=== PATIENT | male | born 1945 | race Caucasian/White ===

== ENCOUNTER 2018-12-31 20:35 | Emergency (ER) | payer MEDICARE, OTHER ==
[2018-12-31 21:33] LABS: ABS Basophils 0.1 10^3/ul (0-0.2); ABS Eosinophils 0 10^3/ul (0-0.6); ABS Lymphocytes 0.9 10^3/ul (1.0-4.8); ABS Monocytes 0.5 10^3/ul (0-0.8); ABS Neutrophils 9.9 10^3/ul (1.5-7.7); ABS Nucleated RBC 0 10^3/ul; Eosinophil % 0 %; Hematocrit 38 % (42-52); Hemoglobin 12.5 g/dl (14.0-18.0); Lymphocyte % 7.5 %; Mean Corpuscular HGB Conc 34 g/dl (31-36); Mean Corpuscular Hemoglobin 33 pg (27-31); Mean Corpuscular Volume 98 fL (80-94); Mean Platelet Volume 9.2 fL (7.4-10.4); Nucleated Red Blood Cells % 0; Platelet Count 159 10^3/ul (150-450); Red Blood Count 3.84 10^6/ul (4.00-5.40); Red Cell Distribution Width 15 % (10.5-15); White Blood Count 11.3 10^3/ul (3.5-10.8)
[2018-12-31 21:50] LABS: BUN/Creatinine Ratio 29.2 (8-20); C Reactive Protein 1.87 mg/L (<8.01); Calcium 9.7 mg/dL (8.6-10.3); EGFR African American 71.4 (>60); INR 2.1 (0.77-1.02); Potassium 4.3 mmol/L (3.5-5.0)
--- NOTE | 2018-12-31 23:31 | ED ---
Upper Extremity Pain - HPI Summary HPI Summary: Pt is a 73 y/o male who presents to the ED c/o hand pain. He has severe gout pain in both hands that radiates up his right arm. Pt also notes bruising and redness that is spreading up his right forearm. He rates the pain as a 10/10 in severity. Pts notes that he recently ate shrimp and beef stew, and has been lifting 1 lb weights. She believes that his forearm bruising could be due to this. Pt is on Coumadin and notes he frequently gets bleeding surrounding his gout. He takes Oxycodone and Methadone for his pain, and used Colchicine, none of which have relieved his pain. - History of Current Complaint Chief Complaint: EDExtremityUpper Stated Complaint: BAD GOUT ATTACK Time Seen by Provider: 12/31/18 23:24 Hx Obtained From: Patient, Family/Pipeline Maintenance Supervisor - Mechanism Of Injury: Other - No injury Onset/Duration: Still Present Timing: Constant Severity Currently: Severe Pain Location: Forearm - right, Hand - bilateral Aggravating Factor(s): Nothing Alleviating Factor(s): Nothing Associated Signs & Symptoms: Positive: Bruising Related History: Other: - gout - Allergies/Home Medications Allergies/Adverse Reactions: Allergies Allergy/AdvReac Type Severity Reaction Status Date / Time MS Triamterene [Triamterene] Allergy Shakes Verified 12/31/18 20:42 PMH/Surg Hx/FS Hx/Imm Hx Endocrine/Hematology History: Reports: Hx Diabetes Denies: Hx Thyroid Disease Cardiovascular History: Reports: Hx Auto Implanted Cardiovert Defib, Hx Hypertension Denies: Hx Angina Respiratory History: Reports: Hx Chronic Obstructive Pulmonary Disease (COPD) - on CPAP, Hx Pneumonia, Hx Sleep Apnea Denies: Hx Asthma GI History: Reports: Hx Hiatal Hernia, Other GI Disorders - constipation Denies: Hx Gastrointestinal Bleed, Hx Ulcer History: Reports: Hx Kidney Infection, Hx Kidney Stones - 26 years ago Musculoskeletal History: Reports: Hx Back Problems, Hx Gout Psychiatric History: Reports: Hx Anxiety, Hx Depression - Surgical History Surgery Procedure, Year, and Place: pacer- bi ventricular Infectious Disease History: No Infectious Disease History: Denies: Hx Clostridium Difficile, Hx Hepatitis, Hx Human Immunodeficiency Virus (HIV), Hx of Known/Suspected MRSA, Traveled Outside the [place] in Last 30 Days - Family History Known Family History: Positive: Hypertension - Social History Alcohol Use: None Hx Substance Use: No Substance Use Type: Reports: None, Prescribed Smoking Status (MU): Unknown if Ever Smoked Have You Smoked in the Last Year: No Review of Systems Positive: Myalgia - bilateral hands extending up right arm Positive: Bruising - hematoma right forearm All Other Systems Reviewed And Are Negative: Yes Physical Exam - Summary Physical Exam Summary: Appearance: Well appearing, no pain distress Skin: warm, dry, reflects adequate perfusion, palpable hematoma on right volar wrist with ecchymosis extending proximally up the forearm, no significant tenderness Head/face: normal Eyes: EOMI, EMILY ENT: mucous membranes moist Neck: supple, non-tender Respiratory: CTA, breath sounds present Cardiovascular: RRR, pulses symmetrical, no LE edema, pacemaker defibrillator in left chest Abdomen: non-tender, soft Bowel Sounds: present Musculoskeletal: terrible tophi bilateral hands with arthritic changes, Neuro: normal, sensory motor intact, A&Ox3 Triage Information Reviewed: Yes Vital Signs On Initial Exam: Initial Vitals Temp Pulse Resp BP Pulse Ox 99.0 F 71 18 124/82 95 12/31/18 20:40 12/31/18 20:40 12/31/18 20:40 12/31/18 20:40 12/31/18 20:40 Vital Signs Reviewed: Yes Diagnostics - Vital Signs Vital Signs Temp Pulse Resp BP Pulse Ox 12/31/18 20:40 99.0 F 71 18 124/82 95 - Laboratory Lab Results: Lab Results 12/31/18 12/31/18 12/31/18 Range/Units 21:16 21:16 21:16 WBC 11.3 H (3.5-10.8) 10^3/ul RBC 3.84 L (4.00-5.40) 10^6/ul Hgb 12.5 L (14.0-18.0) g/dl Hct 38 L (42-52) % MCV 98 H (80-94) fL MCH 33 H (27-31) pg MCHC 34 (31-36) g/dl RDW 15 (10.5-15) % Plt Count 159 (150-450) 10^3/ul MPV 9.2 (7.4-10.4) fL Neut % (Auto) 87.8 % Lymph % (Auto) 7.5 % [place] % (Auto) 4.1 % Eos % (Auto) 0 % Baso % (Auto) 0.6 % Absolute Neuts (auto) 9.9 H (1.5-7.7) 10^3/ul Absolute Lymphs (auto) 0.9 L (1.0-4.8) 10^3/ul Absolute Monos (auto) 0.5 (0-0.8) 10^3/ul Absolute Eos (auto) 0 (0-0.6) 10^3/ul Absolute Basos (auto) 0.1 (0-0.2) 10^3/ul Absolute Nucleated RBC 0 10^3/ul Nucleated RBC % 0 INR (Anticoag Therapy) 2.10 H (0.77-1.02) Sodium 132 L (135-145) mmol/L Potassium 4.3 (3.5-5.0) mmol/L Chloride 97 L (101-111) mmol/L Carbon Dioxide 30 (22-32) mmol/L Anion Gap 5 (2-11) mmol/L BUN 35 H (6-24) mg/dL Creatinine 1.20 H (0.67-1.17) mg/dL Est GFR ( Amer) 71.4 (>60) Est GFR (Non-Af Amer) 59.0 (>60) BUN/Creatinine Ratio 29.2 H (8-20) Glucose 222 H (70-100) mg/dL Calcium 9.7 (8.6-10.3) mg/dL C-Reactive Protein 1.87 (<8.01) mg/L Result Diagrams: 12/31/18 21:16 12/31/18 21:16 Lab Statement: Any lab studies that have been ordered have been reviewed, and results considered in the medical decision making process. Course/Dx - Course Course Of Treatment: Nurse's notes reviewed. Patient with extensive tophaceous gout presents with ecchymosis and tenderness in the right forearm. He is on Coumadin and has sustained hematoma. There is no significant swelling. He is neurovascularly intact. - Diagnoses Differential Diagnosis/HQI/PQRI: Positive: Other - Gout, hematoma, sprain/strain Provider Diagnoses: Tophaceous gout, Traumatic hematoma of right forearm, Adverse effect of anticoagulant Discharge - Sign-Out/Discharge Documenting (check all that apply): Patient Departure - Discharge Patient Received Moderate/Deep Sedation with Procedure: No - Discharge Plan Condition: Improved Disposition: HOME Patient Education Materials: Hematoma (ED) Referrals: Sulma Hough [Primary Care Provider] - Additional Instructions: Cornell wrap, warm compresses to the area. Massage may help absorb this faster. Return with new bleeding, worse, new symptoms or other concerns. INR today was 2.1. - Billing Disposition and Condition Condition: IMPROVED Disposition: Home - Attestation Statements Document Initiated by Scribe: Yes Documenting Scribe: Soco Edwards Provider For Whom Meño is Documenting (Include Credential): Xavi Vasquez MD Scribe Attestation: Soco Weller, scribed for Xavi Vasquez MD on 01/01/19 at 0510. Scribe Documentation Reviewed: Yes Provider Attestation: The documentation as recorded by the scribSoco degroot accurately reflects the service I personally performed and the decisions made by me, Xavi Vasquez MD Status of Scribe Document: Viewed
[2019-01-01 00:06] VITALS: BP 148/72
== END 2019-01-01 00:05 | disposition home or self-care (01) ==
LOC: ED 20:35
DX: S50.11XA Contusion of right forearm, initial encounter (principal); M79.631 Pain in right forearm; Z79.01 Long term (current) use of anticoagulants; M1A.9XX1 Chronic gout, unspecified, with tophus (tophi); X58.XXXA Exposure to other specified factors, initial encounter; Y92.9 Unspecified place or not applicable
CPT/HCPCS: 36415; 80048; 85025; 85610; 86140; 99283

== ENCOUNTER 2020-01-01 12:59 | Emergency (ER) | payer OTHER ==
[2020-01-01 13:27] VITALS: BP 126/77
--- NOTE | 2020-01-01 14:04 | UC ---
Lower Extremity/Ankle HPI - HPI Summary HPI Summary: 74-year-old male with a complicated past medical history presents with multiple complaints. Patient has history of severe neuropathy of the lower extremity. He states he has some bleeding from the large toe where he has arthritis on the inside part of the toe and he is worried about infection. He also states that since yesterday he has had some pain in his right calf. He is concerned about potential infection in the foot and maybe concerned about clot in the leg. He denies any difficulty breathing or shortness of breath. He denies any fevers or chills. He has decreased sensation in that area secondary to his neuropathy. Nothing improves his symptoms. palpating the area worsens the symptoms. - History of Current Complaint Chief Complaint: UCLowerExtremity Stated Complaint: LT FOOT CONCERN Time Seen by Provider: 01/01/20 13:35 Hx Obtained From: Patient, Family/Technology Applications Teacher Pain Intensity: 2 - Risk Factors Gout Risk Factors: Age Over 40, Male, Obesity - Allergies/Home Medications Allergies/Adverse Reactions: Allergies Allergy/AdvReac Type Severity Reaction Status Date / Time Sulfa (Sulfonamide AdvReac GI Upset Verified 01/01/20 13:28 Antibiotics) triamterene AdvReac Shakes Verified 01/01/20 13:28 Home Medications: Home Medications Allopurinol TAB* [Zyloprim 300 MG TAB*] 300 mg PO BID 07/29/13 [History Confirmed 01/01/20] Colchicine TAB* 0.6 mg PO DAILY 07/29/13 [History Confirmed 01/01/20] Metoprolol Tartrate TAB* [Lopressor TAB*] 50 mg PO DAILY 07/29/13 [History Confirmed 01/01/20] Simvastatin 10 mg PO DAILY 07/29/13 [History Confirmed 01/01/20] Bacitracin/Polymyxin B Sulfate [Bacitracin-Polymyxin Ointment] 1 dose TOPICAL BID 11/07/16 [History Confirmed 01/01/20] Cholecalciferol TAB* [Vitamin D TAB*] 1,000 unit PO DAILY 11/07/16 [History Confirmed 01/01/20] Docusate CAP* [Colace Cap*] 100 mg PO DAILY 11/07/16 [History Confirmed 01/01/20 ] Ferrous Sulfate TAB* 325 mg PO DAILY 11/07/16 [History Confirmed 01/01/20] Petrolatum,White [Aloe [place]] 1 dose TOPICAL BID 11/07/16 [History Confirmed ] Warfarin TAB(*) [Coumadin TAB(*)] 7.5 mg PO SEE INSTRUCTIONS 11/07/16 [History Confirmed 01/01/20] Warfarin TAB(*) [Coumadin TAB(*)] 10 mg PO SEE INSTRUCTIONS 11/07/16 [History Confirmed 01/01/20] Bisacodyl 10 mg SUPP [Dulcolax Supp*] 10 mg [place] DAILY PRN 01/01/20 [History Confirmed 01/01/20] Cephalexin CAP* [Keflex 500 CAP*] 500 mg PO QID #40 cap 01/01/20 [Rx] Furosemide TAB* [Lasix TAB*] 40 mg PO BID 01/01/20 [History Confirmed 01/01/20] Gabapentin CAP(*) [Neurontin 300 CAP(*)] 300 mg PO BEDTIME 01/01/20 [History Confirmed 01/01/20] Lidocaine 2% VISCOUS* [Xylocaine 2% Viscous*] 15 ml SWISH SPIT Q4H PRN 01/01/20 [History Confirmed 01/01/20] Magnesium Oxide [Magnesium] 400 mg PO DAILY 01/01/20 [History Confirmed 01/01/20 ] Metoprolol Tartrate TAB* [Lopressor TAB*] 150 mg PO BID 01/01/20 [History Confirmed 01/01/20] Morphine TAB (NF) [Morphine 30 MG TAB (NF)] 15 mg PO BID PRN 01/01/20 [History Confirmed 01/01/20] Naloxone Nasal [place]* [Narcan Nasal [place]] 4 mg NASAL BID PRN 01/01/20 [History Confirmed 01/01/20] Nitroglycerin TAB 0.4 MG* 0.4 mg SL Q5M PRN 01/01/20 [History Confirmed 01/01/20 ] Nystatin CREAM* [Nystatin Cream*] 1 applic TOPICAL BID 01/01/20 [History Confirmed 01/01/20] Triamcinolone 0.1% Oint (NF) [Triamcinolone Acetonide] 1 dose TOPICAL DAILY [History Confirmed 01/01/20] PMH/Surg Hx/FS Hx/Imm Hx Previously Healthy: Yes Endocrine History: Diabetes, Dyslipidemia Cardiovascular History: Cardiac Disease, Hypertension Respiratory History: COPD - Surgical History Surgical History: Yes Surgery Procedure, Year, and Place: pacer- bi ventricular - Family History Known Family History: Positive: Hypertension - Social History Occupation: Retired Alcohol Use: None Substance Use Type: None Smoking Status (MU): Never Smoked Tobacco Have You Smoked in the Last Year: No - Immunization History Most Recent Influenza Vaccination: 2016 this year Most Recent Tetanus Shot: 2015 Most Recent Pneumonia Vaccination: 2016 Review of Systems All Other Systems Reviewed And Are Negative: Yes Musculoskeletal: Positive: Arthralgia, Calf Tenderness, Decreased ROM, Edema Physical Exam Triage Information Reviewed: Yes Appearance: Well-Appearing, Obese Vital Signs: Initial Vital Signs Temp 98.3 F 01/01/20 13:24 Pulse 71 01/01/20 13:24 Resp 22 01/01/20 13:24 BP 126/77 01/01/20 13:24 Pulse Ox 98 01/01/20 13:24 Vital Signs Reviewed: Yes Neck exam: Normal Neck: Positive: 1 Respiratory Exam: Normal Cardiovascular Exam: Normal Musculoskeletal Exam: Normal Musculoskeletal: Positive: Other: - defromity of the left toes and foot with the medial toenail with erythema and warmth of the medical toe. chronic venous skin changes. decresaed sensation . cap reill difficult to assess. peripheral pulses barely palpable. also with (+) homans sign/ mild tenderness to palpation of left calf Neurological Exam: Normal Psychological Exam: Normal Skin: Positive: Other - see above. Negative: Rashes, Breakdown, Significant Lesion(s) Diagnostics - Radiology No standard instances Radiology Interpretation Completed By: Radiologist Summary of Radiographic Findings: ?osteomyelitis Lower Extremity Course/Dx - Course Course Of Treatment: ?osteo on xray -- advise ED for further eval. declined ambulance. go by car to [place] - Differential Dx/Diagnosis Differential Diagnosis/HQI/PQRI: Arthritis, Contusion, DVT, Gout, Infection, Sprain, Strain Provider Diagnosis: Toe infection, Pain of left calf, Osteomyelitis Discharge ED - Sign-Out/Discharge Documenting (check all that apply): Patient Departure All imaging exams completed and their final reports reviewed: Yes - Discharge Plan Condition: Good Disposition: TRANS HIGHER LVL OF CARE FAC Prescriptions: Cephalexin CAP* [Keflex 500 CAP*] 500 mg PO QID #40 cap Patient Education Materials: Osteomyelitis (ED) Referrals: Sulma Hough [Primary Care Provider] - 1 Day Additional Instructions: Go directly to the Emergency Room. Your xray shows potential infection of the bone. - Billing Disposition and Condition Condition: GOOD Disposition: Trans Higher Lvl of Care Fac
--- NOTE | 2020-01-01 15:38 | UC ---
- Progress Note Progress Note: Patient Name: CHINTAN HENRY Medical Record#: [id number] Ordering Physician: Suraj Leyva DO Acct.#: [id number] : 1945 Age: 74 Sex: M Location: [facility] Exam Date: 01/01/20 1343 ADM Status: DEP ER Order Information: VL LOWER EXT VEINS LEFT Accession Number: [id number] CPT: 96510 Indication: Left calf pain. Duplex Doppler sonography of the left calf was performed. The left popliteal vein, posterior tibial vein and peroneal veins appear patent. IMPRESSION: No DVT is noted in the left calf. <Electronically signed by Blank Jenkins MD in OV> 01/01/20 1439 Dictated By: Blank Jenkins MD Dictated Date/Time: 01/01/20 1438 Transcribed Date/Time: 01/01/20 1438 Copy to: CC:Sulma Hough TARP REPAIRER; Suraj Leyva DO Imaging [facility] [address] [address] ph ([phone]) ph ) ph [phone]) This report is only to be considered final once signed by the Provider(s) as displayed in the "<Electronically Signed by >" field (s). Absence of a signature indicates the report is in a draft status and still needs to be finalized. In the event this document was created by someone other than the signing Provider, the individual initiating the document will be listed in the "Entered by:" or "Dictated by:" dunaway. 1 of 1 Course/Dx - Diagnoses Provider Diagnoses: Toe infection, Pain of left calf, Osteomyelitis Discharge ED - Sign-Out/Discharge Documenting (check all that apply): Post-Discharge Follow Up All imaging exams completed and their final reports reviewed: Yes - Discharge Plan Condition: Good Disposition: TRANS HIGHER LVL OF CARE FAC Prescriptions: Cephalexin CAP* [Keflex 500 CAP*] 500 mg PO QID #40 cap Patient Education Materials: Osteomyelitis (ED) Referrals: Sulma Hough [Primary Care Provider] - 1 Day Additional Instructions: Go directly to the Emergency Room. Your xray shows potential infection of the bone. - Billing Disposition and Condition Condition: GOOD Disposition: Trans Higher Lvl of Care Fac
== END 2020-01-01 14:35 | disposition short-term general hospital (02) ==
LOC: UCCORT 12:59
DX: L08.89 Other specified local infections of the skin and subcutaneous tissue (principal); M79.605 Pain in left leg; M86.8X6 Other osteomyelitis, lower leg; E11.9 Type 2 diabetes mellitus without complications; I10 Essential (primary) hypertension; J44.9 Chronic obstructive pulmonary disease, unspecified; Z79.899 Other long term (current) drug therapy; Z88.2 Allergy status to sulfonamides
CPT/HCPCS: 99212; G0463